=== PATIENT | male | born 1970 | race Caucasian/White ===

== ENCOUNTER → 2020-06-23 01:47 | Outpatient (CLI) | payer BC, SELFPAY ==
[2020-06-23 20:22] LABS: SARS-CoV-2 RNA PCR Negative
== END ==
PROVIDERS: PCP Internal Medicine; Visit Provider Internal Medicine Gastroenterology
DX: Z01.812 Encounter for preprocedural laboratory examination (principal); Z20.822 Contact with and (suspected) exposure to COVID-19
CPT/HCPCS: C9803; U0003; U0005

== ENCOUNTER 2020-06-27 01:24 | Day surgery (SDC) | payer BC, SELFPAY ==
[2020-06-14 10:05] VITALS: BMI 30.8
[2020-06-27 10:50] VITALS: BP 152/78; PULSE 58; RESP 18; TEMP 36.4; O2SAT 100
[2020-06-27] MEDS: LACTATED RINGERS 1,000 ML 150 ML IV CONT (11:07)
--- NOTE | 2020-06-27 11:33 | P.PNAN_ITS ---
Anes - Initial Pre Proc Eval Procedure: Operation Date: 06/27/20 11:45 Proposed Procedures p Screening Colonoscopy - Olayinka Navarrete MD Date/Time: 06/27/20 11:33 Surgeon: Olayinka Navarrete MD Pre Op Diagnosis: Neoplasm Screening Patient Data Age: 49 Gender: M Height: 6 ft 2 in Weight: 113 kg Last Vital Signs Temp 97.6 F 06/27/20 10:50 Pulse 58 L 06/27/20 10:50 Resp 18 06/27/20 10:50 BP 152/78 H 06/27/20 10:50 Pulse Ox 100 06/27/20 10:50 Allergies Allergy/AdvReac Type Severity Reaction Status Date / Time No Known Allergies Allergy Verified 06/14/20 10:09 Home Medications Medication Instructions Recorded Confirmed Type atorvastatin 40 mg PO DAILY 06/14/20 06/14/20 History escitalopram oxalate 20 mg PO DAILY 06/14/20 06/14/20 History fenofibrate nanocrystallized 48 mg PO DAILY 06/14/20 06/14/20 History lisinopril 10 mg PO DAILY 06/14/20 06/14/20 History loratadine 10 mg PO DAILY 06/14/20 06/14/20 History omeprazole 20 mg PO DAILY 06/14/20 06/14/20 History Patient hx anesthesia problems: none Family hx anesthesia problems: none [facility] Past Medical History Medical History (Updated 06/27/20 @ 11:33 by Simon Wesley MD) GERD (gastroesophageal reflux disease) Hyperlipidemia Hypertension JOYCELYN (obstructive sleep apnea) Social History Social History Smoking status: Never smoker Drinks per week: 3 Living arrangements: with family Gender identity (if verbalized by the patient): Male Spiritual care concerns: No Anes - Eval Final PreProcedure Day of Procedure 06/27/20 11:33 Patient weight: obese Heart: regular rate and rhythm Lungs: clear to auscultation Airway: Mallampati scale class II Neurological: alert and oriented Last oral intake: >/= 8 hours ASA classification: III Emergent: no Anesthetic plan: proceed Anesthesia type and monitoring: general GIVS and standard monitoring Informed Consent: The patient's anesthetic plan and its attendant risks and benefits were discussed with the patient/family/POA. Questions were solicited and answers provided to the satisfaction of the patient/family/POA.
--- NOTE | 2020-06-27 11:44 | PM.HPGS ---
History of Present Illness History of Present Illness Consent: Risks, benefits, and alternatives have been discussed and questions answered. Patient agrees to proceed with procedure. Chief complaint: Neoplasm Screening Narrative: Suraj Romero is a 49 year old male here for first screening colonoscopy Review of Systems Constitutional: Constitutional: Denies headache(s) and Denies weakness Eyes: Eyes: Denies blurry vision ENT: Reports Normal hearing present, Denies headache(s) and Denies neck pain Cardiovascular: Cardiovascular: Denies chest pain and Denies dyspnea Respiratory: Respiratory: Denies dyspnea Gastrointestinal: Gastrointestinal: Reports no additional gastrointestinal complaints Genitourinary: Genitourinary: Denies dysuria Musculoskeletal: Musculoskeletal: Denies neck pain Integumentary/Breasts: Skin/Breast: Denies dry skin Neurologic: Reports Normal hearing present, Denies headache(s) and Denies weakness Psychiatric: Psychiatric: Denies anxiety Endocrine: Endocrine: Denies change in body appearance Hematologic/Lymphatic: Hematologic/Lymphatic: Denies easy bleeding Allergic/Immunologic: Allergic/Immunologic: Denies urticaria [facility] Past Medical History Medical History (Updated 06/27/20 @ 11:44 by Olayinka Navarrete MD) Colon cancer screening GERD (gastroesophageal reflux disease) Hyperlipidemia Hypertension JOYCELYN (obstructive sleep apnea) Social History Social History Smoking status: Never smoker Drinks per week: 3 Living arrangements: with family Gender identity (if verbalized by the patient): Male Spiritual care concerns: No Meds Home Medications and Allergies Home Medications Medication Instructions Recorded Confirmed Type atorvastatin 40 mg PO DAILY 06/14/20 06/14/20 History escitalopram oxalate 20 mg PO DAILY 06/14/20 06/14/20 History fenofibrate nanocrystallized 48 mg PO DAILY 06/14/20 06/14/20 History lisinopril 10 mg PO DAILY 06/14/20 06/14/20 History loratadine 10 mg PO DAILY 06/14/20 06/14/20 History omeprazole 20 mg PO DAILY 06/14/20 06/14/20 History Allergies Allergy/AdvReac Type Severity Reaction Status Date / Time No Known Allergies Allergy Verified 06/14/20 10:09 Vital Signs Vital Signs - 24 hr 06/27/20 10:50 Temperature 97.6 F Pulse Rate 58 L Respiratory Rate 18 Blood Pressure 152/78 H Pulse Oximetry 100 Exam Const: General: comfortable and no acute distress HENMT: General nose exam: Normal nares present Eyes: General: appearance normal, both eyes and all related structures Neck: Neck: no JVD Resp: Auscultation: clear to auscultation bilaterally Cardio: Rate: regular rate Rhythm: regular rhythm GI: Inspection: non-distended GI Palp: Yes Soft to palpation Skin: General skin exam: normal color Neuro: General: gait normal Speech: normal speech Extrem: General: normal to inspection Psych: Mental Status: mental status grossly normal Assessment and Plan Assessment and plan (1) Colon cancer screening: Code(s): Z12.11 - Encounter for screening for malignant neoplasm of colon Status: Acute Assessment and Plan: proceed with colonoscopy
[2020-06-27 12:07] VITALS: BP 115/78; PULSE 58; RESP 16; O2SAT 96
[2020-06-27 12:17] VITALS: BP 115/77; PULSE 54; RESP 18; O2SAT 95
[2020-06-27 12:27] VITALS: BP 126/72; PULSE 56; RESP 18; O2SAT 98
== END 2020-06-27 12:42 | disposition home or self-care (01) ==
PROVIDERS: PCP Internal Medicine; Visit Provider Internal Medicine Gastroenterology
PROC: 0DJD8ZZ Inspection of Lower Intestinal Tract, Via Natural or Artificial Opening Endoscopic (ICD-10-PCS; CPT 45378; principal; 2020-06-27 11:45)
DX: Z12.11 Encounter for screening for malignant neoplasm of colon (principal); K63.5 Polyp of colon; K64.8 Other hemorrhoids; K21.9 Gastro-esophageal reflux disease without esophagitis; E78.5 Hyperlipidemia, unspecified; I10 Essential (primary) hypertension; G47.33 Obstructive sleep apnea (adult) (pediatric); E66.9 Obesity, unspecified; Z68.32 Body mass index [BMI] 32.0-32.9, adult
CPT/HCPCS: 45385; 88305; J2704; J7120

== ENCOUNTER 2020-10-22 01:39 | Day surgery (SDC) | payer BC, SELFPAY ==
[2020-10-12 14:30] VITALS: BMI 28.8
[2020-10-22 09:10] VITALS: BP 115/96; PULSE 64; RESP 16; TEMP 36.4; O2SAT 94; BMI 31.9
[2020-10-22] MEDS: LACTATED RINGERS 1,000 ML 30 ML IV CONT (09:21)
--- NOTE | 2020-10-22 09:31 | WPDANESEPPF ---
Anes - Initial Pre Proc Eval Procedure: Operation Date: 10/22/20 10:00 Proposed Procedures p Esophagogastroduodenoscopy - Olayinka Navarrete MD Date/Time: 10/22/20 09:31 Surgeon: Olayinka Navarrete MD Pre Op Diagnosis: GERD Patient Data Age: 50 Gender: M Height: 1.88 m Weight: 112.9 kg Last Vital Signs Temp 36.4 C 10/22/20 09:10 Pulse 64 10/22/20 09:10 Resp 16 10/22/20 09:10 BP 115/96 H 10/22/20 09:10 Pulse Ox 94 10/22/20 09:10 Allergies Allergy/AdvReac Type Severity Reaction Status Date / Time No Known Allergies Allergy Verified 10/22/20 09:09 Home Medications Medication Instructions Recorded Confirmed Type atorvastatin 40 mg PO DAILY 06/14/20 10/22/20 History escitalopram oxalate 20 mg PO DAILY 06/14/20 10/22/20 History lisinopril 10 mg PO DAILY 06/14/20 10/22/20 History loratadine 10 mg PO DAILY PRN 06/14/20 10/22/20 History omeprazole 20 mg PO DAILY 06/14/20 10/22/20 History ergocalciferol (vitamin D2) 50,000 unit PO WEEKLY 10/12/20 10/22/20 History ferrous sulfate [Slow Fe] 142 mg PO DAILY 10/12/20 10/22/20 History icosapent ethyl [Vascepa] 2 g PO BID 10/12/20 10/22/20 History multivitamin [Men's Multi-Vitamin] 1 tablet PO DAILY 10/12/20 10/22/20 History Patient hx anesthesia problems: none Family hx anesthesia problems: none [facility] Past Medical History Medical History Colon cancer screening GERD (gastroesophageal reflux disease) Hyperlipidemia Hypertension JOYCEYLN (obstructive sleep apnea) Social History Social History Smoking status: Never smoker Alcohol intake: current Drinks per week: 3 Substance use: never Substance use type: does not use Living arrangements: with family Gender identity (if verbalized by the patient): Male Spiritual care concerns: No Anes - Eval Final PreProcedure Day of Procedure 10/22/20 09:31 Patient weight: obese Heart: regular rate and rhythm Lungs: clear to auscultation Airway: Mallampati scale class II Neurological: alert and oriented Last oral intake: >/= 8 hours ASA classification: III Emergent: no Anesthetic plan: proceed Anesthesia type and monitoring: general GIVS and standard monitoring Informed Consent: The patient's anesthetic plan and its attendant risks and benefits were discussed with the patient/family/POA. Questions were solicited and answers provided to the satisfaction of the patient/family/POA.
--- NOTE | 2020-10-22 09:50 | PM.HPGS ---
History of Present Illness History of Present Illness Consent: Risks, benefits, and alternatives have been discussed and questions answered. Patient agrees to proceed with procedure. Chief complaint: GERD Narrative: Suraj Romero is a 50 year old male with gerd better using omeprazole but never had egd Review of Systems Constitutional: Constitutional: Denies headache(s) and Denies weakness Eyes: Eyes: Denies blurry vision ENT: Reports Normal hearing present, Denies headache(s) and Denies neck pain Cardiovascular: Cardiovascular: Denies chest pain and Denies dyspnea Respiratory: Respiratory: Denies dyspnea Gastrointestinal: Gastrointestinal: Reports no additional gastrointestinal complaints Genitourinary: Genitourinary: Denies dysuria Musculoskeletal: Musculoskeletal: Denies neck pain Integumentary/Breasts: Skin/Breast: Denies dry skin Neurologic: Reports Normal hearing present, Denies headache(s) and Denies weakness Psychiatric: Psychiatric: Denies anxiety Endocrine: Endocrine: Denies change in body appearance Hematologic/Lymphatic: Hematologic/Lymphatic: Denies easy bleeding Allergic/Immunologic: Allergic/Immunologic: Denies urticaria [facility] Past Medical History Medical History (Updated 10/22/20 @ 09:50 by Olayinka Navarrete MD) Colon cancer screening GERD (gastroesophageal reflux disease) Hyperlipidemia Hypertension JOYCELYN (obstructive sleep apnea) Social History Social History Smoking status: Never smoker Alcohol intake: current Drinks per week: 3 Substance use: never Substance use type: does not use Living arrangements: with family Gender identity (if verbalized by the patient): Male Spiritual care concerns: No Meds Home Medications and Allergies Home Medications Medication Instructions Recorded Confirmed Type atorvastatin 40 mg PO DAILY 06/14/20 10/22/20 History escitalopram oxalate 20 mg PO DAILY 06/14/20 10/22/20 History lisinopril 10 mg PO DAILY 06/14/20 10/22/20 History loratadine 10 mg PO DAILY PRN 06/14/20 10/22/20 History omeprazole 20 mg PO DAILY 06/14/20 10/22/20 History ergocalciferol (vitamin D2) 50,000 unit PO WEEKLY 10/12/20 10/22/20 History ferrous sulfate [Slow Fe] 142 mg PO DAILY 10/12/20 10/22/20 History icosapent ethyl [Vascepa] 2 g PO BID 10/12/20 10/22/20 History multivitamin [Men's Multi-Vitamin] 1 tablet PO DAILY 10/12/20 10/22/20 History Allergies Allergy/AdvReac Type Severity Reaction Status Date / Time No Known Allergies Allergy Verified 10/22/20 09:09 Vital Signs Vital Signs - 24 hr 10/22/20 09:10 Temperature 97.6 F Pulse Rate 64 Respiratory Rate 16 Blood Pressure 115/96 H Pulse Oximetry 94 Exam Const: General: comfortable and no acute distress HENMT: General nose exam: Normal nares present Eyes: General: appearance normal, both eyes and all related structures Neck: Neck: no JVD Resp: Auscultation: clear to auscultation bilaterally Cardio: Rate: regular rate Rhythm: regular rhythm GI: Inspection: non-distended GI Palp: Yes Soft to palpation Skin: General skin exam: normal color Neuro: General: gait normal Speech: normal speech Extrem: General: normal to inspection Psych: Mental Status: mental status grossly normal Assessment and Plan Assessment and plan (1) GERD (gastroesophageal reflux disease): Code(s): K21.9 - Gastro-esophageal reflux disease without esophagitis Status: Inactive Assessment and Plan: egd with bx, controlled with ppi
[2020-10-22 10:09] VITALS: BP 111/75; PULSE 67; RESP 24; O2SAT 94
[2020-10-22 10:19] VITALS: BP 113/66; PULSE 65; RESP 16; O2SAT 95
[2020-10-22 10:29] VITALS: BP 113/66; PULSE 64; RESP 17; O2SAT 100
== END 2020-10-22 10:40 | disposition home or self-care (01) ==
PROVIDERS: PCP Internal Medicine; Visit Provider Internal Medicine Gastroenterology
PROC: 0DJ08ZZ Inspection of Upper Intestinal Tract, Via Natural or Artificial Opening Endoscopic (ICD-10-PCS; CPT 43235; principal; 2020-10-22 10:00)
DX: K21.9 Gastro-esophageal reflux disease without esophagitis (principal); K29.70 Gastritis, unspecified, without bleeding; E78.5 Hyperlipidemia, unspecified; I10 Essential (primary) hypertension; G47.33 Obstructive sleep apnea (adult) (pediatric); E66.9 Obesity, unspecified; Z68.32 Body mass index [BMI] 32.0-32.9, adult
CPT/HCPCS: 43239; 88305; J2704; J7120